=== PATIENT | female | born 1980 | race Caucasian/White ===

== ENCOUNTER 2019-03-24 11:30 | Inpatient (IN) | payer OTHER ==
[2019-03-24 11:52] VITALS: BMI 18.8
[2019-03-24] MEDS ORDERED: PNEUMOCOCCAL 23 VACCINE 0.5 ML VIAL IM ONE (12:00)
--- NOTE | 2019-03-24 13:38 | HP ---
COWS - Scale Resting Pulse: 1= [place] 81-100 Sweatin= Beads of Sweat on Face Restless Observation: 1= Difficult to Sit Still Pupil Size: 1= Pupils >than Normal Bone or Joint Aches: 1= Mild Discomfort Runny Nose/ Eye Tearin= Nasal Congestion GI Upset > 30mins: 1= Stomach Cramp Tremor Observation: 2= Slight Tremor Visible Yawning Observation: 1= 1-2x During Session Anxiety or Irritability: 2=Irritable/Anxious Goose Flesh Skin: 3=Piloerection COWS Score: 17 CIWA Score Nausea/Vomitin-Mild Nausea/No Vomiting Muscle Tremors: 4-Moderate,w/Arms Extend Anxiety: 4-Mod. Anxious/Guarded Agitation: 4-Moderately Restless Paroxysmal Sweats: 3 Orientation: 1-Uncertain about Date Tacttile Disturbances: 0-None Auditory Disturbances: 0-None Visual Disturbances: 2-Mild Sensitivity Headache: 1-Very Mild CIWA-Ar Total Score: 20 - Admission Criteria [facility] Guidelines: Admission for Medically Managed Detox: Requires at least one of the followin. CIWA greater than 12 2. Seizures within the past 24 hours 3. Delirium tremens within the past 24 hours 4. Hallucinations within the past 24 hours 5. Acute intervention needed for co occurring medical disorder 6. Acute intervention needed for co occurring psychiatric disorder 7. Severe withdrawal that cannot be handled at a lower level of care (continued vomiting, continued diarrhea, abnormal vital signs) requiring intravenous medication and/or fluids 8. Admitting History and Physical - Admission Chief Complaint: " I want to get help and stop drinking" History of Present Illness: 38 year old female with alcohol dependence with withdrawal. She started drinking at age 25 and using up to 1 pint -2 pints of vodka daily. She had many blackouts, last one 2 days ago. She has had withdrawal seizures, last one 1 month ago. She has been to detox many times in past. She was sober from 4 years ago until 2 years ago when she relapsed. She relapsed due to concurrent use of heroin. She is using up to 10 bags of heroin intranasally daily. She has had near overdoses and given narcan by a friend 2 months ago. She denies smoking ciggarettes. She denies other drugs of abuse. PMH; Blepharospasm, light sensitivity. Psurg: None Psych: WILD She is domiciled alone and has poor support systems. Her father supports her emotionally and financially. She is an aesthetic nurse. She is not working right now, stopped working one year ago. History Source: Patient Limitations to Obtaining History: No Limitations - Past Medical History COMPLIANCE ASSISTANT: Yes: Multiple Sclerosis, Seizure (Alcohol related. Reports the last one. One week ago.) Cardiovascular: Yes: Other (?? MS ). No: AFIB ...LMP: 03/28/13 Psych: Yes: Anxiety - Past Surgical History Past Surgical History: Yes: None - Advance Directives Advance Directives: No: Living Will, Health Care Proxy, DNR - Smoking History Smoking history: Never smoked Have you smoked in the past 12 months: No Aproximately how many cigarettes per day: 0 If you are a former smoker, when did you quit?: 16 YRS OLD - Alcohol/Substance Use Hx Alcohol Use: No Number of Drinks Daily: 10 History of Substance Use: reports: Heroin Date of Last Use: 03/23/19 - Social History Usual Living Arrangement: Yes: With Parent Do you think of yourself as: Straight/Heterosexual ADL: Independent Occupation: aesthetic nurse but unemployed right now History of Recent Travel: No Admission [facility] Allergies/Adverse Reactions: Allergies Allergy/AdvReac Type Severity Reaction Status Date / Time No Known Allergies Allergy Verified 03/24/19 11:44 Exam Limitations: No Limitations - Ebola screening Have you traveled outside of the country in the last 21 days: No (N) Have you had contact with anyone from an Ebola affected area: No Have you been sick,other than usual withdrawal symptoms: No Do you have a fever: No - Review of Systems Constitutional: Chills, Diaphoresis, Loss of Appetite, Weight Stable EENT: reports: No Symptoms Reported Respiratory: reports: No Symptoms reported Cardiac: reports: No Symptoms Reported GI: reports: Nausea, Indigestion, Abdominal cramping : reports: No Symptoms Reported Musculoskeletal: reports: Muscle Pain Integumentary: reports: No Symptoms Reported, Erythema (chin) Neuro: reports: No Symptoms reported Endocrine: reports: No Symptoms Reported Hematology: reports: No Symptoms Reported Psychiatric: reports: Judgement Intact, Mood/Affect Appropiate, Orientated x3 Other Systems: Reviewed and Negative Patient History - Patient Medical History Hx Asthma: No Hx Chronic Obstructive Pulmonary Disease (COPD): No Hx Cardiac Disorders: No Hx Hypertension: No Hx Seizures: Yes (etoh related last 1 wk ago) Hx Diabetes: No Hx Gastrointestinal Disorders: No Hx Genitourinary Disorders: No Hx Sexually Transmitted Disorders: No Hx Renal Disease (ESRD): No Hx Human Immunodeficiency Virus (HIV): No Hx Hepatitis C: No Hx Depression: No Hx Suicide Attempt: No Hx Schizophrenia: No - Patient Surgical History Past Surgical History: No Hx Neurologic Surgery: No Hx Cataract Extraction: No Hx Cardiac Surgery: No Hx Lung Surgery: No Hx Breast Surgery: No Hx Breast Biopsy: No Hx Abdominal Surgery: No Hx Appendectomy: No Hx Cholecystectomy: No Hx Genitourinary Surgery: No Hx Orthopedic Surgery: Yes - PPD History Date: 09/23/12 - Reproductive History Last Menstrual Period: 03/28/13 - Smoking Cessation Smoking history: Never smoked Have you smoked in the past 12 months: No Aproximately how many cigarettes per day: 0 If you are a former smoker, when did you quit?: 16 YRS OLD Hx Chewing Tobacco Use: No - Substances abused Alcohol Substance route: Oral Frequency: Daily Amount used: 3 PINTS OF VODKA + 6 PACK OF BEER Age of first use: Date of last use: 03/24/19 Heroin Substance route: Inhalation Frequency: Daily Amount used: UNKNOWN Age of first use: Date of last use: 03/23/19 Admission Physical Exam BHS - Vital Signs Vital Signs: Vital Signs - 24 hr 03/24/19 11:38 Temperature 98.3 F Pulse Rate 94 H Respiratory 16 Rate Blood Pressure 129/84 - Physical General Appearance: Yes: Moderate Distress, Alcohol on Breath, Thin, Tremorous, Irritable, Sweating, Anxious HEENTM: Yes: EOMI, Hearing grossly Normal, Normocephalic, Normal Voice, FRAN, Pharynx Normal, Tm's normal Respiratory: Yes: Chest Non-Tender, Lungs Clear, Normal Breath Sounds, No Respiratory Distress, No Accessory Muscle Use Neck: Yes: No masses,lesions,Nodules, Supple, Trachea in good position Breast: Yes: Breast Exam Deferred Cardiology: Yes: Regular Rhythm, S1, S2, Tachycardia Abdominal: Yes: Non Tender, Soft, Increased Bowel Sounds Genitourinary: Yes: Within Normal Limits Back: Yes: Normal Inspection Musculoskeletal: Yes: full range of Motion, Gait Steady, Pelvis Stable Extremities: Yes: Normal Capillary Refill, Normal Inspection, Normal Range of Motion, Non-Tender Neurological: Yes: sternman II-XII NML intact, Fully Oriented, Alert, Motor Strength 5/5, Normal Mood/Affect, Normal Response Integumentary: Yes: Normal Color, Warm Lymphatic: Yes: Within Normal Limits - Diagnostic (1) Alcohol dependence with withdrawal, uncomplicated Current Visit: Yes Status: Acute (2) Depression Current Visit: Yes Status: Acute Cleared for Admission [facility] - Detox or Rehab [facility] Level of Care: Medically Managed Detox Regimen/Protocol: Methadone/Librium Screened but not Admitted - Documentation of Visit Screened but not Admitted: No Breathalyzer - Breathalyzer Breathalyzer: 0.225 Inpatient Rehab Admission - Rehab Decision to Admit Inpatient rehab admission?: No
[2019-03-24] MEDS ORDERED: MELATONIN 5 MG TABLETS PO PRN (13:46)
[2019-03-24] MEDS ORDERED: ACETAMINOPHEN 325 MG TABLET (FP) PO PRN ×2 (13:46)
[2019-03-24] MEDS ORDERED: IBUPROFEN 400 MG TABLET (FP) PO PRN (13:46)
[2019-03-24] MEDS ORDERED: MAGNESIUM HYDROX 2400MG/30ML ORAL SUSPENSION 30 ML CUP PO PRN (13:46)
[2019-03-24] MEDS ORDERED: BISMUTH SUBSALICYLATE 262 MG/15 ML BTL PO PRN (13:46)
[2019-03-24] MEDS ORDERED: MAGNESIUM CITRATE 300 ML BOTTLE PO PRN (13:46)
[2019-03-24] MEDS ORDERED: cloNIDine HCL 0.1 MG TABLET PO PRN (13:46)
[2019-03-24] MEDS ORDERED: MENTHOL/PHENOL 1 EACH UD MM PRN (13:46)
[2019-03-24] MEDS ORDERED: METHADONE HCL 10 MG TABLET (FOR DETOX USE ONLY) PO ONE (14:15)
[2019-03-24] MEDS: chlordiazePOXIDE HCL 25 MG CAPSULE PO SCH ×2 (16:31→22:13)
[2019-03-24] MEDS: hydrOXYzine PAMOATE 25 MG CAPSULE (FP) PO PRN (18:47)
[2019-03-24] MEDS: chlordiazePOXIDE HCL 25 MG CAPSULE PO PRN (19:39)
[2019-03-24] MEDS: MAG HYDROX/AL HYDROX/SIMETH 30 ML UNIT-DOSE CUP PO PRN (20:29)
[2019-03-24] MEDS: THIAMINE HCL 100 MG TABLET (FP) PO SCH (22:13)
[2019-03-24] MEDS: SUVOREXANT 10 MG TABLET PO PRN (22:14)
[2019-03-25] MEDS: hydrOXYzine PAMOATE 25 MG CAPSULE (FP) PO PRN (02:08)
[2019-03-25] MEDS: chlordiazePOXIDE HCL 25 MG CAPSULE PO SCH ×4 (06:03→22:03)
[2019-03-25 09:56] LABS: ALBUMIN 4.2 g/dl (3.4-5.0); BILIRUBIN,TOTAL 0.5 mg/dL (0.2-1); BLOOD UREA NITROGEN 7.7 mg/dL (7-18); CALCIUM 8.9 mg/dL (8.5-10.1); CREATININE 0.7 mg/dL (0.55-1.3); HEMATOCRIT 36.6 % (32.4-45.2); HEMOGLOBIN 12.2 GM/dL (10.7-15.3); MCH 30.8 pg (25.7-33.7); MCHC 33.2 g/dl (32.0-36.0); MEAN CELL VOLUME 92.9 fl (80-96); PLATELET COUNT 280 K/MM3 (134-434); POTASSIUM 3.6 mmol/L (3.5-5.1); RBC 3.94 M/mm3 (3.60-5.2); RDW 15.9 % (11.6-15.6); TOT PROT 7.5 g/dl (6.4-8.2); WHITE BLOOD COUNT 5.5 K/mm3 (4.0-10.0)
[2019-03-25] MEDS ORDERED: METHADONE HCL 5 MG TABLET (FOR DETOX USE ONLY) PO ONE (10:00)
[2019-03-25] MEDS: PRENATAL VITAMINS W/ FOLIC ACID TABLET (FP) PO SCH (10:10)
[2019-03-25] MEDS ORDERED: ONDANSETRON *ODT* 4 MG TABLET SL PRN (11:18)
--- NOTE | 2019-03-25 11:22 | PN ---
[facility] CIWA - CIWA Score Nausea/Vomitin-No Nausea/No Vomiting Muscle Tremors: 3 Anxiety: 2 Agitation: 3 Paroxysmal Sweats: 2 Orientation: 0-Oriented Tacttile Disturbances: 0-None Auditory Disturbances: 0-None Visual Disturbances: 0-None Headache: 0-None Present CIWA-Ar Total Score: 10 BHS COWS - Scale Resting Pulse: 1= [place] 81-100 Sweatin= Chills/Flushing Restless Observation: 1= Difficult to Sit Still Pupil Size: 0= Normal to Room Light Bone or Joint Aches: 2= Severe Diffuse Aches Runny Nose/ Eye Tearin= Nasal Congestion GI Upset > 30mins: 0= None Tremor Observation of Outstretched Hands: 1= Tremor [place], Not Seen Yawning Observation: 1= 1-2x During Session Anxiety or Irritability: 2=Irritable/Anxious Goose Flesh Skin: 0=Smooth Skin COWS Score: 10 [facility] Progress Note (SOAP) Subjective: sweats shakes body aches nausea interrupted sleep Objective: 03/25/19 11:21 Vital Signs Temperature 98.2 F 03/25/19 09:52 Pulse Rate 85 03/25/19 09:52 Respiratory Rate 16 03/25/19 09:52 Blood Pressure 128/79 03/25/19 09:52 O2 Sat by Pulse Oximetry (%) Laboratory Tests 03/25/19 03/25/19 08:00 08:00 WBC 5.5 RBC 3.94 Hgb 12.2 Hct 36.6 MCV 92.9 MCH 30.8 MCHC 33.2 RDW 15.9 H D Plt Count 280 MPV 9.0 Sodium 136 Potassium 3.6 Chloride 97 L Carbon Dioxide 33 H Anion Gap 6 L BUN 7.7 Creatinine 0.7 Est GFR (CKD-EPI)AfAm 126.49 Est GFR (CKD-EPI)NonAf 109.14 Random Glucose 87 Calcium 8.9 Total Bilirubin 0.5 AST 35 ALT 81 H Alkaline Phosphatase 75 Total Protein 7.5 Albumin 4.2 labs noted aaox3 ambulating no acute distress Assessment: 03/25/19 11:22 withdrawals Plan: continue detox increase fluids zofran prn
[2019-03-25] MEDS ORDERED: PNEUMOCOCCAL 23 VACCINE 0.5 ML VIAL IM ONE (12:00)
[2019-03-25] MEDS ORDERED: PNEUMOC 13-VAL CONJ-DIP CRM/PF 0.5 ML DISP.SYRIN IM ONE (12:00)
[2019-03-25] MEDS: SUVOREXANT 10 MG TABLET PO PRN (22:00)
[2019-03-25] MEDS: THIAMINE HCL 100 MG TABLET (FP) PO SCH (22:03)
[2019-03-26] MEDS: METHOCARBAMOL 500 MG TABLET PO PRN ×2 (02:19→10:41)
[2019-03-26] MEDS: hydrOXYzine PAMOATE 25 MG CAPSULE (FP) PO PRN (02:19)
[2019-03-26] MEDS: chlordiazePOXIDE HCL 25 MG CAPSULE PO SCH ×4 (05:19→22:01)
--- NOTE | 2019-03-26 09:30 | PN ---
S CIWA - CIWA Score Nausea/Vomitin-Mild Nausea/No Vomiting Muscle Tremors: 3 Anxiety: 3 Agitation: 2 Paroxysmal Sweats: 2 Orientation: 0-Oriented Tacttile Disturbances: 1-Very Mild Itch/Numbness Auditory Disturbances: 0-None Visual Disturbances: 0-None Headache: 0-None Present CIWA-Ar Total Score: 12 BHS COWS - Scale Resting Pulse: 1= [place] 81-100 Sweatin= Chills/Flushing Restless Observation: 1= Difficult to Sit Still Pupil Size: 0= Normal to Room Light Bone or Joint Aches: 1= Mild Discomfort Runny Nose/ Eye Tearin= Runny Nose/Eyes GI Upset > 30mins: 2= Nausea/Diarrhea Tremor Observation of Outstretched Hands: 1= Tremor [place], Not Seen Yawning Observation: 0= None Anxiety or Irritability: 2=Irritable/Anxious Goose Flesh Skin: 0=Smooth Skin COWS Score: 11 S Progress Note (SOAP) Subjective: c/o of interrupted sleep, chills, sweats Objective: 03/26/19 09:41 Vital Signs Temperature 98.6 F 03/26/19 07:37 Pulse Rate 87 03/26/19 07:37 Respiratory Rate 18 03/26/19 07:37 Blood Pressure 106/77 03/26/19 07:37 O2 Sat by Pulse Oximetry (%) Laboratory Last Values WBC 5.5 K/mm3 (4.0-10.0) 03/25/19 08:00 RBC 3.94 M/mm3 (3.60-5.2) 03/25/19 08:00 Hgb 12.2 GM/dL (10.7-15.3) 03/25/19 08:00 Hct 36.6 % (32.4-45.2) 03/25/19 08:00 MCV 92.9 fl (80-96) 03/25/19 08:00 MCH 30.8 pg (25.7-33.7) 03/25/19 08:00 MCHC 33.2 g/dl (32.0-36.0) 03/25/19 08:00 RDW 15.9 % (11.6-15.6) H D 03/25/19 08:00 Plt Count 280 K/MM3 (134-434) 03/25/19 08:00 MPV 9.0 fl (7.5-11.1) 03/25/19 08:00 Sodium 136 mmol/L (136-145) 03/25/19 08:00 Potassium 3.6 mmol/L (3.5-5.1) 03/25/19 08:00 Chloride 97 mmol/L (98-107) L 03/25/19 08:00 Carbon Dioxide 33 mmol/L (21-32) H 03/25/19 08:00 Anion Gap 6 MMOL/L (8-16) L 03/25/19 08:00 BUN 7.7 mg/dL (7-18) 03/25/19 08:00 Creatinine 0.7 mg/dL (0.55-1.3) 03/25/19 08:00 Est GFR (CKD-EPI)AfAm 126.49 03/25/19 08:00 Est GFR (CKD-EPI)NonAf 109.14 03/25/19 08:00 Random Glucose 87 mg/dL (74-106) 03/25/19 08:00 Calcium 8.9 mg/dL (8.5-10.1) 03/25/19 08:00 Total Bilirubin 0.5 mg/dL (0.2-1) 03/25/19 08:00 AST 35 U/L (15-37) 03/25/19 08:00 ALT 81 U/L (13-61) H 03/25/19 08:00 Alkaline Phosphatase 75 U/L (45-117) 03/25/19 08:00 Total Protein 7.5 g/dl (6.4-8.2) 03/25/19 08:00 Albumin 4.2 g/dl (3.4-5.0) 03/25/19 08:00 RPR Titer Nonreactive (NONREACTIVE) 03/25/19 08:00 Assessment: 03/26/19 15:51 Patient Aox3 no acute distress, anxious skin intact, no edema or erythema full ROM no gait abnormality withdrawal sx Plan: increase PO fluids continue detox continue to monitor
[2019-03-26] MEDS ORDERED: METHADONE HCL 10 MG TABLET (FOR DETOX USE ONLY) PO ONE (10:00)
[2019-03-26] MEDS: PRENATAL VITAMINS W/ FOLIC ACID TABLET (FP) PO SCH (10:41)
[2019-03-26] MEDS: chlordiazePOXIDE HCL 25 MG CAPSULE PO PRN (14:43)
[2019-03-26] MEDS: MAG HYDROX/AL HYDROX/SIMETH 30 ML UNIT-DOSE CUP PO PRN (17:00)
[2019-03-26] MEDS: THIAMINE HCL 100 MG TABLET (FP) PO SCH (21:48)
[2019-03-26] MEDS: SUVOREXANT 10 MG TABLET PO PRN (21:51)
[2019-03-27] MEDS: chlordiazePOXIDE HCL 10 MG CAPSULE PO SCH ×4 (05:51→22:28)
[2019-03-27] MEDS ORDERED: METHADONE HCL 5 MG TABLET (FOR DETOX USE ONLY) PO ONE (06:00)
[2019-03-27] MEDS: PRENATAL VITAMINS W/ FOLIC ACID TABLET (FP) PO SCH (10:46)
--- NOTE | 2019-03-27 11:21 | PN ---
[facility] CIWA - CIWA Score Nausea/Vomitin-Mild Nausea/No Vomiting Muscle Tremors: 3 Anxiety: 4-Mod. Anxious/Guarded Agitation: 4-Moderately Restless Paroxysmal Sweats: 2 Orientation: 0-Oriented Tacttile Disturbances: 0-None Auditory Disturbances: 0-None Visual Disturbances: 0-None Headache: 1-Very Mild CIWA-Ar Total Score: 15 BHS COWS - Scale Resting Pulse: 1= [place] 81-100 Sweatin=Flushed/Facial Moisture Restless Observation: 3= Extraneous Movement Pupil Size: 1= Pupils >than Normal Bone or Joint Aches: 1= Mild Discomfort Runny Nose/ Eye Tearin= Nasal Congestion GI Upset > 30mins: 1= Stomach Cramp Tremor Observation of Outstretched Hands: 2= Slight Tremor Visible Yawning Observation: 1= 1-2x During Session Anxiety or Irritability: 4=Extreme Anxiety Goose Flesh Skin: 0=Smooth Skin COWS Score: 17 S Progress Note (SOAP) Subjective: Pt states she is concerned about the lowering doses of detox meds. Says she needs to be on valium- will be getting from PCP on Friday and states she will go to methadone program at discharge. High COWS and CIWA scores O Vital Signs - 24 hr 03/26/19 03/26/19 03/26/19 14:29 18:25 21:08 Temperature 96.6 F L 97.7 F 98.1 F Pulse Rate 94 H 96 H 98 H Respiratory 18 17 18 Rate Blood Pressure 108/66 118/68 109/69 03/27/19 03/27/19 03/27/19 00:30 08:12 10:17 Temperature 98.2 F 98.8 F Pulse Rate 92 H 94 H Respiratory 18 18 16 Rate Blood Pressure 114/57 L 112/69 Laboratory Tests 03/25/19 03/25/19 03/25/19 08:00 08:00 08:00 WBC 5.5 RBC 3.94 Hgb 12.2 Hct 36.6 MCV 92.9 MCH 30.8 MCHC 33.2 RDW 15.9 H D Plt Count 280 MPV 9.0 Sodium 136 Potassium 3.6 Chloride 97 L Carbon Dioxide 33 H Anion Gap 6 L BUN 7.7 Creatinine 0.7 Est GFR (CKD-EPI)AfAm 126.49 Est GFR (CKD-EPI)NonAf 109.14 Random Glucose 87 Calcium 8.9 Total Bilirubin 0.5 AST 35 ALT 81 H Alkaline Phosphatase 75 Total Protein 7.5 Albumin 4.2 RPR Titer Nonreactive a/p: benzo/alcohol/heroin detox- continue detox protocols- pt has tapering doses of librium. Considering high COWS score and persistent withdrawal Sx will continue methadone at 5mg until discharge
[2019-03-27] MEDS ORDERED: cloNIDine HCL 0.1 MG TABLET PO PRN (11:24)
[2019-03-27] MEDS: chlordiazePOXIDE HCL 10 MG CAPSULE PO PRN ×2 (13:43→23:55)
[2019-03-27] MEDS: THIAMINE HCL 100 MG TABLET (FP) PO SCH (22:28)
[2019-03-28] MEDS: METHADONE HCL 5 MG TABLET (FOR DETOX USE ONLY) PO SCH (05:47)
[2019-03-28] MEDS: chlordiazePOXIDE HCL 10 MG CAPSULE PO SCH ×2 (05:47→16:57)
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
[2019-03-28] MEDS: PRENATAL VITAMINS W/ FOLIC ACID TABLET (FP) PO SCH (11:32)
--- NOTE | 2019-03-28 13:55 | PN ---
[facility] CIWA - CIWA Score Nausea/Vomitin-No Nausea/No Vomiting Muscle Tremors: None Anxiety: 2 Agitation: 0-Normal Activity Paroxysmal Sweats: 3 Orientation: 0-Oriented Tacttile Disturbances: 0-None Auditory Disturbances: 0-None Visual Disturbances: 0-None Headache: 0-None Present CIWA-Ar Total Score: 5 S COWS - Scale Resting Pulse: 1= [place] 81-100 Sweatin= Chills/Flushing Restless Observation: 0= Sits Still Pupil Size: 0= Normal to Room Light Bone or Joint Aches: 1= Mild Discomfort Runny Nose/ Eye Tearin= None GI Upset > 30mins: 0= None Tremor Observation of Outstretched Hands: 0= None Yawning Observation: 0= None Anxiety or Irritability: 2=Irritable/Anxious Goose Flesh Skin: 0=Smooth Skin COWS Score: 5 [facility] Progress Note (SOAP) Subjective: c/o mild withdrawal symptoms. Objective: 03/28/19 13:54 Vital Signs 03/28/19 03/28/19 06:44 10:18 Temperature 97.3 F L 98 F Pulse Rate 90 91 H Respiratory 18 16 Rate Blood Pressure 107/65 100/65 Laboratory Last Values WBC 5.5 K/mm3 (4.0-10.0) 03/25/19 08:00 RBC 3.94 M/mm3 (3.60-5.2) 03/25/19 08:00 Hgb 12.2 GM/dL (10.7-15.3) 03/25/19 08:00 Hct 36.6 % (32.4-45.2) 03/25/19 08:00 MCV 92.9 fl (80-96) 03/25/19 08:00 MCH 30.8 pg (25.7-33.7) 03/25/19 08:00 MCHC 33.2 g/dl (32.0-36.0) 03/25/19 08:00 RDW 15.9 % (11.6-15.6) H D 03/25/19 08:00 Plt Count 280 K/MM3 (134-434) 03/25/19 08:00 MPV 9.0 fl (7.5-11.1) 03/25/19 08:00 Sodium 136 mmol/L (136-145) 03/25/19 08:00 Potassium 3.6 mmol/L (3.5-5.1) 03/25/19 08:00 Chloride 97 mmol/L (98-107) L 03/25/19 08:00 Carbon Dioxide 33 mmol/L (21-32) H 03/25/19 08:00 Anion Gap 6 MMOL/L (8-16) L 03/25/19 08:00 BUN 7.7 mg/dL (7-18) 03/25/19 08:00 Creatinine 0.7 mg/dL (0.55-1.3) 03/25/19 08:00 Est GFR (CKD-EPI)AfAm 126.49 03/25/19 08:00 Est GFR (CKD-EPI)NonAf 109.14 03/25/19 08:00 Random Glucose 87 mg/dL (74-106) 03/25/19 08:00 Calcium 8.9 mg/dL (8.5-10.1) 03/25/19 08:00 Total Bilirubin 0.5 mg/dL (0.2-1) 03/25/19 08:00 AST 35 U/L (15-37) 03/25/19 08:00 ALT 81 U/L (13-61) H 03/25/19 08:00 Alkaline Phosphatase 75 U/L (45-117) 03/25/19 08:00 Total Protein 7.5 g/dl (6.4-8.2) 03/25/19 08:00 Albumin 4.2 g/dl (3.4-5.0) 03/25/19 08:00 RPR Titer Nonreactive (NONREACTIVE) 03/25/19 08:00 Labs noted. Assessment: 03/28/19 13:59 AOX3, in no acute respiratory distress. Full ROM, ambulating in the unit. Withdrawal symptoms. For d/c tomorrow. Plan: continue detox. D/C in AM.
[2019-03-28] MEDS: MAG HYDROX/AL HYDROX/SIMETH 30 ML UNIT-DOSE CUP PO PRN (18:26)
[2019-03-28] MEDS ORDERED: SUVOREXANT 10 MG TABLET PO PRN (22:00)
[2019-03-28] MEDS ORDERED: QUEtiapine FUMARATE 50 MG TABLET PO SCH (22:00)
[2019-03-28] MEDS: THIAMINE HCL 100 MG TABLET (FP) PO SCH (22:21)
[2019-03-29] MEDS ORDERED: chlordiazePOXIDE HCL 10 MG CAPSULE PO ONE (05:00)
[2019-03-29] MEDS: METHADONE HCL 5 MG TABLET (FOR DETOX USE ONLY) PO SCH (05:29)
[2019-03-29 07:35] VITALS: BP 106/75; PULSE 73; TEMP 97.5
--- NOTE | 2019-03-29 09:23 | DS ---
[facility] Detox Discharge Summary Admission Date: 03/24/19 Discharge Date: 03/29/19 - History Present History: Alcohol Dependence - Physical Exam Results Vital Signs: Vital Signs Temperature 97.5 F L 03/29/19 05:00 Pulse Rate 73 03/29/19 05:00 Respiratory Rate 16 03/29/19 05:00 Blood Pressure 106/75 03/29/19 05:00 O2 Sat by Pulse Oximetry (%) Pertinent Admission Physical Exam Findings: Vital Signs Temperature 97.5 F L 03/29/19 05:00 Pulse Rate 73 03/29/19 05:00 Respiratory Rate 16 03/29/19 05:00 Blood Pressure 106/75 03/29/19 05:00 O2 Sat by Pulse Oximetry (%) Laboratory Tests 03/25/19 03/25/19 03/25/19 08:00 08:00 08:00 WBC 5.5 RBC 3.94 Hgb 12.2 Hct 36.6 MCV 92.9 MCH 30.8 MCHC 33.2 RDW 15.9 H D Plt Count 280 MPV 9.0 Sodium 136 Potassium 3.6 Chloride 97 L Carbon Dioxide 33 H Anion Gap 6 L BUN 7.7 Creatinine 0.7 Est GFR (CKD-EPI)AfAm 126.49 Est GFR (CKD-EPI)NonAf 109.14 Random Glucose 87 Calcium 8.9 Total Bilirubin 0.5 AST 35 ALT 81 H Alkaline Phosphatase 75 Total Protein 7.5 Albumin 4.2 RPR Titer Nonreactive aaox3 ambulating no acute distress - Treatment Hospital Course: Detox Protocol Followed, Detoxed Safely, Responded well, Discharged Condition Good, Rehab Referral Accepted Patient has Accepted a Rehab Referral to: pt referred to [facility] - Medication Discharge Medications: Ambulatory Orders Mirtazapine [Remeron -] 30 mg PO HS 03/24/19 Quetiapine Fumarate [Seroquel -] 200 mg PO HS 03/24/19 - Diagnosis (1) Alcohol dependence with withdrawal, uncomplicated Current Visit: Yes Status: Chronic (2) Depression Current Visit: Yes Status: Acute (3) Insomnia Current Visit: Yes Status: Acute (4) Multiple sclerosis Current Visit: No Status: Acute (5) Visual changes Current Visit: No Status: Acute (6) Anxiety disorder Current Visit: No Status: Suspected - AMA Did Patient Leave Against Medical Advice: No
== END 2019-03-29 09:03 | disposition home or self-care (01) | DRG 773 ==
LOC: YASAS 11:30 → Y6N 14:05
PROVIDERS: ADMIT Allergy & Immunology; ATTEND Allergy & Immunology
PROC: HZ2ZZZZ Detoxification Services for Substance Abuse Treatment (ICD-10-PCS; principal; 2019-03-24)
DX: F10.230 Alcohol dependence with withdrawal, uncomplicated (principal); F11.20 Opioid dependence, uncomplicated; F32.9 Major depressive disorder, single episode, unspecified; F41.9 Anxiety disorder, unspecified; G47.00 Insomnia, unspecified; G35 Multiple sclerosis; H53.9 Unspecified visual disturbance; R00.0 Tachycardia, unspecified; Z62.810 Personal history of physical and sexual abuse in childhood
CPT/HCPCS: 36415; 80053; 85027; 86593